=== PATIENT | female | born 1965 | race Caucasian/White ===

== ENCOUNTER → 2016-11-16 | Outpatient (CLI) | payer BC, OTHER ==
--- NOTE | 2016-11-16 08:08 | US ---
EXAMINATION TYPE: US abdomen complete DATE OF EXAM: 11/16/2016 7:34 AM COMPARISON: NONE CLINICAL HISTORY: 51-year-old female K83.9 disease of the biliary tract. TECHNIQUE: Multiple sonographic images of the abdomen were obtained. FINDINGS: TECHNOLOGIST NOTES: Patient of large body habitus, technically difficult exam Liver Length: 18.2 cm Gallbladder Wall: 0.2 cm CBD: 0.5 cm Spleen: 13.6 cm Right Kidney: 10.5 x 4.6 x 5.3 cm Left Kidney: 11.1 x 5.7 x 4.8 cm Pancreas: Suboptimal visualization of the pancreatic tail secondary to shadowing from bowel gas. Visu alized portions show no gross abnormality. Liver: Echogenic with far field attenuation. This secondary limits assessment for focal lesion. The liver is mildly enlarged as well. Gallbladder: No abnormal gallbladder distention, wall thickening, pericholecystic fluid, or shadowin g calculi. Evidence for sonographic Lovett's sign: no CBD: Within normal limits Spleen: Borderline enlarged. Right Kidney: No hydronephrosis. Left Kidney: Some cortical lobulation along the mid pole. No discrete mass is seen. Upper IVC: Not well seen. Abd Aorta: portions visualized within normal limits, partially obscured by overlying bowel gas, bifur cation not seen. IMPRESSION: 1. Hepatomegaly with marked hepatic steatosis. Correlate with LFTs, lipid profile, and patient risk f actors. 2. Spleen measures at the upper limits of normal in size.
== END | disposition home or self-care (01) ==
LOC: RADUSWWP 06:56
PROVIDERS: ATTEND Internal Medicine
DX: K76.0 Fatty (change of) liver, not elsewhere classified (principal); R16.0 Hepatomegaly, not elsewhere classified
CPT/HCPCS: 76700